=== PATIENT | male | born 1930 | race Caucasian/White ===

== ENCOUNTER 2016-10-21 08:16 | Emergency (ER) | payer MEDICARE, OTHER ==
[~2016-10-21] VITALS: Ht 167.6 cm; Wt 81.4 kg
[~2016-10-21 08:16] MED LIST: AMLO-39 PO; ASCO500T8 PO; ASPI81TA53 PO; ATEN50TA PO; ATOR20TA PO; CHOL200047 PO; CYAN100T PO; DOXY100C2 PO; HMLG7525I SUBQ; HYDR-4003 PO; Hydrocodone/Acetaminophen PO; RIFA300C4 PO; TELM40TA PO
[2016-10-21 08:21] VITALS: BP 123/68; PULSE 89; RESP 18; O2SAT 98
[2016-10-21] MEDS ORDERED: 0.9% Sodium Chloride 500 ML IV ONE (08:58)
--- NOTE | 2016-10-21 09:02 | ED.REPORT ---
HPI-Dizziness / Weakness Date of Service October 21, 2016 ED Provider: Jose Dale MD The patient is a 86 year old male w/ a hx of CAD, DM on insulin, HTN on warfarin , hyperlipidemia, and peripheral vascular disease who presents to the ED due to dizziness onset yesterday at 1400. The pt had a GLF yesterday afternoon and hit the back of his head without losing consciousness. Immediately after the fall, he was seen at [facility] at which time there were no acute findings. He is unable to confirm whether or not the dizziness began before or after his fall. At the ED, he confirms headache, dizziness, lightheadedness, and denies any spinning sensation. The headache is located in the back of his head, the same area where he hit his head during the fall. Family member states that his dizziness is worse when he is walking around. He denies vomiting, blurry vision , difficulty speaking or swallowing, weakness, numbness tingling in extremities , chest pain, SOB, reg rate and rhythm. He is currently on meclizine. Nursing Notes Stated Complaint: DIZZY Chief Complaint: General Complaint Nursing Notes Reviewed: Yes Allergies: Coded Allergies: No Known Allergies (Unverified , 10/21/16) Scheduled Amlodipine (Norvasc) 5 Mg Tablet 10 MG PO DAILY Ascorbic Acid (Vitamin C) 500 Mg Tablet 500 MG PO DAILY Aspirin (Aspir-Low) 81 Mg Tablet.dr 81 MG PO DAILY Atenolol (Atenolol) 50 Mg Tablet 50 MG PO BID Atorvastatin (Lipitor) 20 Mg Tablet 10 MG PO DAILY Cholecalciferol (Vitamin D3) (Vitamin D3) 2,000 Unit Capsule 2,000 UNIT PO DAILY Cyanocobalamin (Vitamin B-12) (Vitamin B-12) 100 Mcg Tablet 50 MCG PO DAILY Doxycycline Hyclate (Doxycycline Hyclate) 100 Mg Capsule 100 MG PO BID Insulin Lisp Protam/Lisp Human (HumaLOG 75/25 U100 Insulin Vial) 100 Unit/Ml Ml 20 UNIT SUBQ QAM Insulin Lisp Protam/Lisp Human (HumaLOG 75/25 U100 Insulin Vial) 100 Unit/Ml Ml 15 UNIT SUBQ QPM Rifampin (Rifampin) 300 Mg Capsule 300 MG PO BID Telmisartan (Micardis) 40 Mg Tablet 40 MG PO DAILY Scheduled PRN ([Hydrocodone/Acetaminophen]) 1 TAB TABLET 1-2 TAB PO Q4H PRN PRN For Moderate Pain Hydrocodone-Acetaminophen 5-325 mg (Hydrocodone-Acetaminophen 5-325 mg) 1 Each Tablet 1 EACH PO Q4 PRN PRN For Pain General Time Seen by MD: 08:26 Chief Complaint Dizzy Hx Obtained From: Patient Arrived By: Walk-in Onset Occurred: Yesterday Symptom Duration: Since onset Location: : Head Quality: Painful Severity: Current: Mild Recent Healthcare: Recent doctor visit Similar Sx Previous: Yes Past Medical History Past Medical History Peripheral Vascular disease Diabetic foot ulcer. Reports: Coronary artery disease, Diabetes mellitus, Hyperlipidemia, Hypertension Past Surgical History Right femoral occlusion status post endardectomy for a non healing ulcer on his toe. 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 Smoking History Former Smoker Social History Other Social History: Good social support, Local resident Ambulatory Status Cane Review of Systems Eyes: Denies: Blurred bilateral Respiratory: Denies: Shortness of breath Cardiovascular: Denies: Chest pain GI: Denies: Abdominal pain, Vomiting Neurologic: Reports: Dizziness, Headache, Lightheaded, Denies: Numbness, Slurred speech, Unable to speak, Weakness Complete sys rev & neg: except as marked. Physical Exam Physical Exam Notes: Initial Vital Signs Vital Signs (First) Date Time Temp Pulse Resp B/P Pulse Ox O2 Delivery O2 Flow Rate FiO2 10/21/16 08:21 36.1 89 18 123/68 98 Room Air Initial VS: Reviewed ENT: Mucous membranes moist, Conjunctiva normal Neck: Supple, Non-tender Abdomen / GI: Soft, Non-tender, No guarding, No rebound Back: No CVA tenderness Extremities: Vascular intact, Neuro intact, No swelling, No tenderness Skin: Warm, Dry General/Constitutional: Awake, Alert, No acute distress, Cooperative Head / Eyes: Normocephalic, PERRL no external signs of trauma cranial nerves 2-12 are intact positive scot-hallpike Respiratory / Chest: Atraumatic, Breath sounds NL, Breath sounds = bilat Cardiovascular: Heart rate NL, Regular rhythm Neurologic: Oriented X3, Speech NL, No motor deficits, No sensory deficits Interpretation & Diagnostics Lab Results Interpretation Result Diagram: 10/21/16 0915 10/21/16 0915 Test 10/21/16 09:15 White Blood Count 6.0th/mm3 (3.8-10.1) Red Blood Count 4.41mil/mm3 (4.40-5.80) Hemoglobin 13.4g/dL (13.8-17.2) Hematocrit 39.6% (41.0-50.0) Mean Corpuscular Volume 89.8fL (81-100) Mean Corpuscular Hemoglobin 30.4pg (27.0-35.0) Mean Corpuscular Hemoglobin Concent 33.8% (32.0-37.0) Red Cell Distribution Width 12.9% (12.3-15.4) Platelet Count 188bil/L (150-400) Neutrophils (%) (Auto) 58.8% (40-74) Lymphocytes (%) (Auto) 28.5% (14-46) Monocytes (%) (Auto) 9.1% (4-12) Eosinophils (%) (Auto) 3.1% (0-5) Basophils (%) (Auto) 0.3% (0-3) Prothrombin Time 10.0sec (8.1-12.5) Prothromb Time International Ratio 0.94ratio Sodium Level 141mEq/L (134-144) Potassium Level 4.0mEq/L (3.5-5.2) Chloride Level 101mEq/L (97-108) Carbon Dioxide Level 24mmol/L (18-29) Blood Urea Nitrogen 18mg/dL (8-27) Creatinine 1.08mg/dL (0.76-1.27) Estimat Glomerular Filtration Rate 69mL/min (>59) Glucose Level 183mg/dL (60-99) Calcium Level 9.5mg/dL (8.5-10.1) Total Bilirubin 0.9mg/dL (0.0-1.2) Aspartate Amino Transf (AST/SGOT) 24U/L (0-50) Alanine Aminotransferase (ALT/SGPT) 17U/L (0-44) Alkaline Phosphatase 173U/L (25-160) Total Protein 7.1g/dL (6.4-8.4) Albumin 3.6g/dL (3.4-5.0) Hold Charles Top Tube Received (Received) ECG Interpretation ECG Interpretation: no ST changes Time: 08:35 Interpreted by: ED physician Normal ECG Interpretation: Normal sinus rhythm (rate 86) X-Ray Chest Interpretation Chest Xray Interpretation: IMPRESSION: No acute cardiopulmonary disease process. Dictated by: Amy Barker MD, PhD on 10/21/2016 at 9:25 Approved by: Amy Barker MD, PhD on 10/21/2016 at 9:25 View: Portable Interpretation / Wet Read by: Interpret - Radiologist CT Head Interpretation IMPRESSION: No acute intracranial disease process. Dictated by: Amy Barker MD, PhD on 10/21/2016 at 9:26 Approved by: Amy Barker MD, PhD on 10/21/2016 at 9:29 Study: Head CT no contrast Interpretation / Wet Read by: Interpret - Radiologist Re-Eval/Medical Decision Med Decision/Clinical Course 86-year-old male history of CAD, hypertension, atrial fibrillation on Coumadin presenting with dizziness 1 day. He also fell and hit his head yesterday and is unsure if this was before after the dizziness started.. CT head is normal. Scot-Hallpike is positive. His neurological exam is otherwise normal. His labs are stable. Likely benign positional vertigo. Recommend meclizine as needed. Follow-up with primary doctor. Return precautions given. Counseled Regarding: Diagnosis, Lab results, Need for follow-up, When/why to return to ED Patient Discharge & Departure Impression: Primary Impression: Dizziness Additional Impression: Benign positional vertigo Laterality: unspecified laterality Qualified Code: H81.10 - Benign paroxysmal vertigo, unspecified ear Disposition: Home Discharge Condition All VS Reviewed: Yes Condition: Stable Additional Instructions: Thank you for entrusting us with your care today. Your Catscan, x-ray, and labwork are normal and there are no concerning findings. Follow up with your primary care physician as needed. Return to the Emergency Department for any new or worsening symptoms including dizziness dizziness, confusion, headache, visual changes, changes in speech, difficulty swallowing, or vomiting. I hope you feel better soon! Referrals: Karyn Juarez (PCP) Vandana Attestation Portion of this note were transcribed by Marilu Sood. I, Dr. Dale, personally performed the history, physical exam, and medical decision-making: I reviewed and confirmed the accuracy for the information in the transcribed note. Signed by: vandana Cowan, 10/21/16 1200 Karyn Juarez Whitney October 21, 2016 09:02 Jose Dale MD October 22, 2016 13:42
[2016-10-21 09:25] LABS: Mean Corpuscular Hemoglobin 30.4 pg (27.0-35.0); Mean Corpuscular Volume 89.8 fL (81-100); NEUTROPHILS % (AUTO) 58.8 % (40-74); Platelet Count 188 bil/L (150-400)
[2016-10-21 09:26] LABS: BASOPHILS % (AUTO) 0.3 % (0-3); EOSINOPHILS % (AUTO) 3.1 % (0-5); MONOCYTES % (AUTO) 9.1 % (4-12)
--- NOTE | 2016-10-21 09:27 | DRSVH ---
PROCEDURE: X-RAY CHEST ONE VIEW, PORTABLE ([id number]) INDICATIONS: dizziness TECHNIQUE: One view of the chest was acquired. COMPARISON: [facility], CR, CHEST 2VW, 09/07/2014, 8:16. FINDINGS: Surgical changes and devices: Gastroesophageal junction surgical clips. Lungs and pleura: No pleural effusions or pneumothorax. Lungs are clear. Mediastinum: Mediastinal contours appear normal. Heart size is normal. Bones and chest wall: No suspicious bony lesions. Overlying soft tissues appear unremarkable. IMPRESSION: No acute cardiopulmonary disease process. Dictated by: Amy Barker MD, PhD on 10/21/2016 at 9:25 Approved by: Amy Barker MD, PhD on 10/21/2016 at 9:25
[2016-10-21 09:30] VITALS: BP 122/61; PULSE 64; RESP 14; O2SAT 99
--- NOTE | 2016-10-21 09:30 | DRSVH ---
PROCEDURE: CT BRAIN WITHOUT CONTRAST ([id number]) INDICATIONS: dizziness s/p trauma on coumadin TECHNIQUE: Noncontrast 4.5 mm thick angled axial sections acquired from the foramen magnum to the vertex, with c oronal reformats. COMPARISON: [facility], CT, BRAIN W/O CONTRAST, 09/07/2014, 12:01. FINDINGS: Image quality: Excellent. CSF spaces: Basal cisterns are patent. No extra-axial fluid collections. The ventricles are symmet stan in size and shape. Brain: No intracranial bleeds or masses. There is cerebral volume loss for age, with resultant vent ricular and sulcal prominence. Chronic, small, bilateral basal ganglia lacunar infarcts are stable co mpared to prior examination. There are periventricular and deep white matter chronic small vessel isc hemic changes. There is intracranial internal carotid artery and vertebral artery atherosclerosis. Skull and face: Calvarium and visualized facial bones appear intact, without suspicious lesions. Sof t tissue density lesion noted in the right external auditory canal which could represent ear wax or n eoplastic process. Sinuses: Small mucous retention cyst versus polyp is noted in the right maxillary sinus. mastoids are clear. IMPRESSION: No acute intracranial disease process. Dictated by: Amy Barker MD, PhD on 10/21/2016 at 9:26 Approved by: Amy Barker MD, PhD on 10/21/2016 at 9:29
[2016-10-21 09:35] VITALS: BP 147/70; PULSE 89; RESP 22; O2SAT 97
[2016-10-21 09:48] LABS: INR 0.94 ratio
[2016-10-21 10:25] VITALS: BP 142/65; PULSE 59; RESP 13; O2SAT 99
[2016-10-21 10:29] VITALS: BP 133/68; PULSE 93; RESP 25; O2SAT 98
[2016-10-21 11:16] VITALS: BP 140/78; PULSE 82; RESP 18; O2SAT 97
== END 2016-10-21 11:10 | disposition home or self-care (01) ==
LOC: SED 08:16
DX: R42 Dizziness and giddiness (principal); W18.39XA Other fall on same level, initial encounter; Y92.9 Unspecified place or not applicable; Y93.89 Activity, other specified; Y99.8 Other external cause status; I25.10 Atherosclerotic heart disease of native coronary artery without angina pectoris; E11.9 Type 2 diabetes mellitus without complications; I10 Essential (primary) hypertension; E78.5 Hyperlipidemia, unspecified; I73.9 Peripheral vascular disease, unspecified; Z87.891 Personal history of nicotine dependence; Z79.01 Long term (current) use of anticoagulants; Z79.82 Long term (current) use of aspirin; Z79.4 Long term (current) use of insulin
CPT/HCPCS: 36415; 70450; 71010; 80053; 85025; 85610; 93005; 99285; J7030